=== PATIENT | female | born 1955 | race African-American/Black ===

== ENCOUNTER 2017-08-21 22:54 | Emergency (ER) | payer SELFPAY ==
[2017-08-21 22:59] VITALS: BP 119/80; PULSE 87; TEMP 97.7; BMI 25.1
--- NOTE | 2017-08-21 23:41 | PDOC ---
History of Present Illness - History of Present Illness Initial Comments: 08/22/17 00:00 Patient is a 62 F, who presents with b/l knee pain. Patient states that since yesterday she was unable to bend her right knee. She denies any history of trauma to knees. Patient denies any fever, chills nausea, vomiting, diarrhea, chest pain, shortness of breath, redness, or swelling Social Hx: Current every day smoker. 08/22/17 00:02 <Chelsea Rosales - Last Filed: 08/22/17 00:02> <Linda Santacruz - Last Filed: 08/22/17 00:20> - General Chief Complaint: Pain, Acute Stated Complaint: PAIN Time Seen by Provider: 08/21/17 23:19 Past History <Chelsea Rosales - Last Filed: 08/22/17 00:02> - Past Medical History COPD: No - Suicide/Smoking/Psychosocial Hx Smoking History: Current every day smoker Number of Cigarettes Smoked Daily: 4 Information on smoking cessation initiated: No 'Breaking Loose' booklet given: 10/16/15 Hx Alcohol Use: Yes (occasional) Drug/Substance Use Hx: No Substance Use Type: None <Linda Santacruz - Last Filed: 08/22/17 00:20> - Past Medical History Allergies/Adverse Reactions: Allergies Allergy/AdvReac Type Severity Reaction Status Date / Time No Known Allergies Allergy Verified 08/21/17 22:57 Home Medications: Ambulatory Orders Aspirin [ASA -] 81 mg PO DAILY 08/22/17 Review of Systems - Review of Systems Comments:: 08/22/17 00:02 CONSTITUTIONAL: Absent: fever, no chills, no fatigue EYES: Absent: visual changes ENT: Absent: ear pain, no sore throat CARDIOVASCULAR: Absent: chest pain, no palpitations RESPIRATORY: Absent: cough, no SOB GI: Absent: abdominal pain, no nausea, no vomiting, no constipation, no diarrhea GENITOURINARY: Absent: dysuria, no frequency, no hematuria MUSCULOSKELETAL: Present: b/l knee pain Absent: back pain SKIN: Absent: rash NEURO: Absent: headache 08/22/17 00:05 <Chelsea Rosales - Last Filed: 08/22/17 00:02> *Physical Exam - Vital Signs Last Vital Signs Temp Pulse Resp BP Pulse Ox 97.7 F 87 18 119/80 97 08/21/17 22:57 08/21/17 22:57 08/21/17 22:57 08/21/17 22:57 08/21/17 22:57 - Physical Exam Comments: 08/22/17 00:02 GENERAL: Well-appearing, well-nourished. No apparent distress. HEENT: Normocephalic, atraumatic. PERRL, EOM intact. CARDIOVASCULAR: Normal S1, S2. Regular rate and rhythm. PULMONARY: Clear to auscultation bilaterally. ABDOMEN: Soft, non-distended, non-tender. EXTREMITIES: Right knee - some tenderness, medial meniscus area, hard cyst-like structure ( 1cm) On the left knee - bony prominence at the upper fibula. No signs of cellulitis SKIN: Warm, dry. No rash NEUROLOGICAL: No focal neurological deficits. <Chelsea Rosales - Last Filed: 08/22/17 00:02> - Vital Signs Last Vital Signs Temp Pulse Resp BP Pulse Ox 97.7 F 87 18 119/80 97 08/21/17 22:57 08/21/17 22:57 08/21/17 22:57 08/21/17 22:57 08/21/17 22:57 <Linda Santacruz - Last Filed: 08/22/17 00:20> *DC/Admit/Observation/Transfer - Attestations Scribe Attestion: 08/22/17 00:04 Documentation prepared by Chelsea Rosales, acting as medical claims representative for Linda Santacruz MD. <Chelsea Rosales - Last Filed: 08/22/17 00:02> <Linda Santacruz - Last Filed: 08/22/17 00:20> Diagnosis at time of Disposition: Knee pain, bilateral Qualifiers: Chronicity: chronic Qualified Code(s): M25.561 - Pain in right knee; M25.562 - Pain in left knee; M25.562 - Pain in left knee; G89.29 - Other chronic pain; G89.29 - Other chronic pain DJD (degenerative joint disease) of knee Qualifiers: Osteoarthritis type: unspecified Laterality: bilateral Qualified Code(s): M17.0 - Bilateral primary osteoarthritis of knee - Discharge Dispostion Disposition: HOME Condition at time of disposition: Stable - Referrals Referrals: Barry Moscoso MD [Staff Physician] - - Patient Instructions Printed Discharge Instructions: DI for Knee Pain Additional Instructions: please followup with your orthopedist
== END 2017-08-22 00:38 | disposition home or self-care (01) ==
LOC: JER 22:54
DX: M17.11 Unilateral primary osteoarthritis, right knee (principal); M17.12 Unilateral primary osteoarthritis, left knee
CPT/HCPCS: 73562-TC-LT-FY; 73562-TC-RT-FY; 99281-25

== ENCOUNTER 2019-04-13 12:11 | Inpatient (IN) | payer SELFPAY ==
--- NOTE | 2019-04-13 12:37 | PDOC ---
History of Present Illness - General Chief Complaint: Pain, Acute Stated Complaint: ABD/PAIN Time Seen by Provider: 04/13/19 12:36 History Source: Patient Exam Limitations: No Limitations - History of Present Illness Initial Comments: 04/13/19 13:05 63y previously healthy F presenting w RUQ pain. Woke up yesterday morning with sudden onset constant severe RUQ pain, worse w eating. Did not take any pain meds. Denies alcohol, trauma, AB surgery. Denies fever, nausea/vomiting, chest pain/SOB, urinary/bowel mvmt changes. Past History - Past Medical History Allergies/Adverse Reactions: Allergies Allergy/AdvReac Type Severity Reaction Status Date / Time No Known Allergies Allergy Verified 04/13/19 12:24 Home Medications: Ambulatory Orders NK [No Known Home Medication] 04/13/19 COPD: No - Psycho Social/Smoking Cessation Hx Smoking History: Current every day smoker Number of Cigarettes Smoked Daily: 4 Information on smoking cessation initiated: Yes 'Breaking Loose' booklet given: 10/16/15 Hx Alcohol Use: Yes (occasional) Drug/Substance Use Hx: No Substance Use Type: None Review of Systems - Review of Systems Constitutional: No: Chills, Fever HEENTM: No: Eye Pain, Ear Discharge, Nose Pain, Throat Pain Respiratory: No: Cough, Shortness of Breath Cardiac (ROS): No: Chest Pain, Palpitations, Syncope ABD/GI: No: Abdominal Distended, Constipated, Diarrhea, Nausea, Vomiting : No: Burning, Dysuria, Discharge, Frequency Musculoskeletal: No: Back Pain, Joint Pain Integumentary: No: Bruising, Dryness, Erythema Neurological: No: Headache, Seizure, Tingling Psychiatric: No: Anxiety, Depression, Stressors Endocrine: No: Excessive Sweating, Flushing, Intolerance to Cold, Intolerance to Heat Hematologic/Lymphatic: No: Anemia, Blood Clots *Physical Exam - Vital Signs Last Vital Signs Temp Pulse Resp BP Pulse Ox 99.2 F 108 H 22 H 122/71 95 04/13/19 12:25 04/13/19 12:25 04/13/19 12:25 04/13/19 12:25 04/13/19 12:25 - Physical Exam General Appearance: Yes: Nourished, Appropriately Dressed, Mild Distress HEENT: positive: EOMI, ROBERT, Normal Voice, Hearing Grossly Normal. negative: Scleral Icterus (R), Scleral Icterus (L), Nasal Congestion Respiratory/Chest: positive: Lungs Clear, Normal Breath Sounds, Rapid RR. negative: Chest Tender, Respiratory Distress, Crackles, Rales, Rhonchi, Stridor , Wheezing Cardiovascular: positive: Regular Rhythm, S1, S2, Tachycardia. negative: Edema , Murmur Gastrointestinal/Abdominal: positive: Normal Bowel Sounds, Tender (moderate RUQ , + kramer), Flat, Soft. negative: Organomegaly, Distended, Guarding, Rebound Musculoskeletal: negative: CVA Tenderness (R), CVA Tenderness (L) Extremity: positive: Normal Capillary Refill Integumentary: positive: Normal Color Neurologic: positive: Fully Oriented, Alert, Normal Response, Responsive. negative: Numbness, Confused, Disoriented ED Treatment Course - LABORATORY CBC & Chemistry Diagram: 04/13/19 12:50 04/13/19 12:50 Medical Decision Making - Medical Decision Making 04/13/19 13:06 CXR shows clear lungs, atelectasis EKG shows NSR HR 90, QTc 452, no ST changes RUQ US showed hepatomegaly w mild fatty liver, normal gallbladder CT A/P shows small pocket of air in upper anterior pelvic wall entrapped bowel vs pneumoperitoneum, hepatic steatosis, 3cm L ovarian cyst WBC 10.9, normal CMP, trop/UA --- 63y previously healthy F presenting w 1d RUQ pain d/t unknown cause. Low concern for ACS (neg trop, NSR EKG) vs pancreatitis (normal lipase) vs UTI ( clean UA) vs cholecystitis (normal gallbladder/no stones/wall thickening/fluid on US, normal bili). CT A/P showed small pocket of air in upper anterior pelvic wall (posterior umbilicus/suprapubic region) that repeat CT in L lateral decubitus confirmed nondilated small bowel loop herniating into pelvic wall, no pnuemoperitoneum or SBO. Given 8 morphine, tylenol, 30mL/kg NS, pain still 11/18 Admitted m/s Dr Enrique for intractable RUQ pain Discharge - Discharge Information Problems reviewed: Yes Clinical Impression/Diagnosis: Intractable abdominal pain Condition: Stable - Follow up/Referral - Patient Discharge Instructions - Post Discharge Activity
[2019-04-13] MEDS ORDERED: morphine CARPU-JECT 4 MG/1 ML DISP.SYRIN IVPUSH ONE ×3 (12:46→18:51)
[2019-04-13] MEDS ORDERED: ACETAMINOPHEN 1000 MG/100 ML VIAL (NON FORMULARY) IVPB ONE (12:47)
[2019-04-13] MEDS ORDERED: SODIUM CHLORIDE 2,449 ML IV ONE (12:59)
[2019-04-13] MEDS ORDERED: ACETAMINOPHEN INJECTION 100 ML IVPB ONE (13:20)
[2019-04-13] MEDS ORDERED: MORPHINE SULFATE 2 MG/ML VIAL ONE ×2 (13:20→15:14)
[2019-04-13 13:29] LABS: BASO % 0.6 % (0-2.0); EOS % 0.2 % (0-4.5); HEMATOCRIT 43.7 % (32.4-45.2); HEMOGLOBIN 14.8 GM/dL (10.7-15.3); LYMPH % 34.1 % (8-40); MCH 30.4 pg (25.7-33.7); MCHC 33.9 g/dl (32.0-36.0); MEAN CELL VOLUME 89.7 fl (80-96); MEAN PLT VOLUME 7.9 fl (7.5-11.1); MONO % 13.9 % (3.8-10.2); NEUT % 51.2 % (42.8-82.8); PLATELET COUNT 207 K/MM3 (134-434); RBC 4.87 M/mm3 (3.60-5.2); RDW 13.4 % (11.6-15.6); WHITE BLOOD COUNT 10.9 K/mm3 (4.0-10.0)
[2019-04-13 13:37] LABS: VENOUS PC02 41.1 mmHg (38-52); VENOUS PH 7.41 (7.31-7.41)
[2019-04-13 13:39] LABS: VENOUS PO2 < 49 mmHg (28-48)
[2019-04-13 13:46] LABS: EPI CELLS 1.5 /HPF (0-5/HPF); HYALINE CASTS 4 /lpf (0-8); PH,URINE 5.5 (5.0-8.0); URINE APPEARANCE CLEAR; URINE BACTERIA 6.5 /hpf (NEGATIVE); URINE BILIRUBIN 1+ (NEGATIVE); URINE COLOR DK YELLOW; URINE GLUCOSE (UA) NEGATIVE (NEGATIVE); URINE KETONE NEGATIVE (NEGATIVE); URINE LEUK ESTERASE 2+ (NEGATIVE); URINE NITRITE NEGATIVE (NEGATIVE); URINE PROTEIN NEGATIVE (NEGATIVE); URINE RBC 3 /hpf (0-4); URINE UROBILINOGEN 4.0 E.U/dl mg/dL (0.2-1.0); URINE WBC 5 /hpf (0-5)
[2019-04-13 14:00] LABS: INR 1.16 (0.83-1.09); PROTHROMBIN TIME (PATIENT) 13.7 SEC (9.7-13.0)
[2019-04-13 14:06] LABS: ALBUMIN 3.7 g/dl (3.4-5.0); ALK PHOS 104 U/L (45-117); ANION GAP 6 MMOL/L (8-16); BILIRUBIN,TOTAL 0.8 mg/dL (0.2-1); BLOOD UREA NITROGEN 10.1 mg/dL (7-18); CHLORIDE 106 mmol/L (98-107); CO2 25 mmol/L (21-32); CREATININE 0.7 mg/dL (0.55-1.3); GLUCOSE,RANDOM 105 mg/dL (74-106); POTASSIUM 5.3 mmol/L (3.5-5.1); SGOT/AST 70 U/L (15-37); SGPT/ALT 70 U/L (13-61); SODIUM 137 mmol/L (136-145); TOT PROT 7.9 g/dl (6.4-8.2)
--- NOTE | 2019-04-13 14:06 | PDOC ---
Documentation entered by Zaki Sauer SCRIBE, acting as scribe for Barry Jacobson MD. Barry Jacobson MD: This documentation has been prepared by the Camacho santiago Daniel, SCRIBE, under my direction and personally reviewed by me in its entirety. I confirm that the documentation accurately reflects all work, treatment, procedures, and medical decision making performed by me. Attending Attestation - Resident Resident Name: Venu Moe - ED Attending Attestation I have performed the following: I have examined & evaluated the patient, The case was reviewed & discussed with the resident, I agree w/resident's findings & plan, Exceptions are as noted - HPI HPI: 04/13/19 14:06 63 F with no PMH presents to ED with R sided abdominal pain. Pt reports sudden onset pain yesterday that is non-radiating. Denies F/C. Denies N/V. Denies diarrhea/constipation. Has never had pain like this before. Pain is worse with lying down. Denies CP/SOB. No prior surgeries. - Physicial Exam PE: 04/13/19 14:07 "GENERAL: Awake, alert, and fully oriented, in no acute distress. HEAD: No signs of trauma EYES: PERRLA, EOMI, sclera anicteric, conjunctiva clear ENT: Auricles normal inspection, hearing grossly normal, nares patent, oropharynx clear without exudates. Moist mucosa NECK: Nontender, no stepoffs, Normal ROM, supple, no lymphadenopathy, JVD, or masses LUNGS: Breath sounds equal, clear to auscultation bilaterally. No wheezes, and no crackles HEART: Regular rate and rhythm, normal S1 and S2, no murmurs, rubs or gallops ABDOMEN: + RUQ TTP, normoactive bowel sounds. No guarding, no rebound. No masses EXTREMITIES: Normal range of motion, no edema. No clubbing or cyanosis. No cords, erythema, or tenderness NEUROLOGICAL: Cranial nerves II through XII intact. 5/5 strength and sensation in all extremities, Normal speech, normal gait, normal cerebellar function SKIN: Warm, Dry, normal turgor, no rashes or lesions noted. - Medical Decision Making 04/13/19 14:08 63 F with RUQ pain. Suspect biliary colic. - Labs - RUQ sono - Pain control US negative CT obtained showing RLL PNA and hernia containing loop of bowel. Pt without obstructive symptoms. Pt admitted to hospitalist
[2019-04-13] MEDS ORDERED: morphine SULFATE 4 MG/ML VIAL ONE (19:13)
--- NOTE | 2019-04-13 22:31 | PN ---
Teaching Attending Note Name of Resident: Lencho Ward ATTENDING PHYSICIAN STATEMENT I saw and evaluated the patient. I reviewed the resident's note and discussed the case with the resident. I agree with the resident's findings and plan as documented. SUBJECTIVE: Patient is a 63 year old woman with a PMH of Tobacco use who presents to ER with right sided abdominal pain. Patient reports sudden onset pain yesterday that is non-radiating. Denies fever, chills, chest pain, SOB, nausea, vomiting, diarrhea, dysuria, frequency, hematuria, headache or constipation. Has never had pain like this before. Pain is worse with lying down. No prior abdominal surgeries. No recent travel or sick contacts. Denies alcohol or illicit drug use. OBJECTIVE: Alert Vital Signs Period Temp Pulse Resp BP Sys/Bustillos Pulse Ox Last 24 Hr 99.2 F 84-108 16-22 117-123/71-78 95-98 HEENT: No Jaundice, eye redness or discharge, PERRLA, EOMI. Normocephalic, atraumatic. External ears are normal and hearing is grossly intact. No nasal discharge. Neck: Supple, nontender. No palpable adenopathy or thyromegaly. No JVD Chest: Good effort. Diminished breath sounds and dullness in both lung bases. Heart: Regular. No S3, rub or murmur Abdomen: Not distended, soft, nontender and no HSM. No rebound or guarding. Normal bowel sounds. Ext: Peripheral pulses intact. No leg edema. Skin: Warm and dry. No petechiae, rash or ecchymosis. Neuro: Alert. Oriented x3. CN 2-12 grossly intact. Sensation grossly intact in all four extremities and DTR are symmetric. Psych: Appropriate mood and affect. Good insight. Home Medications Medication Instructions Recorded NK [No Known Home Medication] 04/13/19 Abnormal Lab Results 04/13/19 04/13/19 04/13/19 12:50 12:50 12:50 WBC 10.9 H Monocytes % 13.9 H PT with INR 13.70 H INR 1.16 H POC VBG pO2 Potassium 5.3 H Anion Gap 6 L AST 70 H ALT 70 H Urine Bilirubin Urine Urobilinogen Ur Leukocyte Esterase 04/13/19 04/13/19 13:10 13:20 WBC Monocytes % PT with INR INR POC VBG pO2 < 49 H Potassium Anion Gap AST ALT Urine Bilirubin 1+ H Urine Urobilinogen 4.0 e.u/dl H Ur Leukocyte Esterase 2+ H ASSESSMENT AND PLAN: 1. Intractable flank pain - Likely due to pneumonia. CXR shows RLL fluffy infiltrate. Ultrasound shows hepatomegaly with mild fatty infiltration. CT of abdomen/pelvis shows RLL infiltrate, nondilated small bowel loop herniating into the pelvic wall with no small bowel obstruction. Will consult surgery. Treat with IV Rocephin, Azithromycin and Solumedrol. Mild hyperkalemia is unexplained - will hydrate and repeat BMP. EKG is pending. Trend LFTs. Will continue comprehensive care for all of patients comorbid conditions. 2. Tobacco Use Counseled on risks associated with tobacco use. We will provide patient all the necessary assistance to facilitate smoking cessation and prescribe Nicotine patch. 3. DVT prophylaxis - Lovenox 40 mg SQ q 24 hours. 4. Advance directives - Full code
[2019-04-14] MEDS ORDERED: MORPHINE SULFATE 2 MG/ML VIAL IVPUSH PRN (01:32)
[2019-04-14] MEDS ORDERED: IBUPROFEN 600 MG TABLET (FP) PO PRN (01:32)
--- NOTE | 2019-04-14 01:41 | HP ---
CHIEF COMPLAINT: RUQ pain PCP: HISTORY OF PRESENT ILLNESS: The patient is a 63-year-old female with no past medical history who comes in complaining of a one-day history of right upper quadrant pain. The patient describes a sharp, constant, 7/10 pain in the right upper quadrant of her abdomen extending into her right flank. The patient denies any exacerbating or alleviating factors and states that she has never had a pain like this before in her life. In emergency Department, a right upper quadrant ultrasound showed no evidence of cholecystitis or cholelithiasis with a normal appearing gallbladder. An initial CT of the abdomen and pelvis showed a 3 cm left ovarian cyst as well as possible air in the anterior abdominal wall. A repeat CT of the abdomen and pelvis showed that this air in the abdominal wall was, in fact, a small abdominal hernia which was not incarcerated. The chest x-ray showed a prominent mediastinum with possible atelectasis at the left base. Recent Travel: none PAST MEDICAL HISTORY: see HPI PAST SURGICAL HISTORY: Left ankle surgery Social History: Smoking: currently smokes 3-4 cigarettes per day Alcohol: drinks 2-3 beers every other week Drugs: denies Allergies No Known Allergies Allergy (Verified 04/13/19 12:24) HOME MEDICATIONS: Home Medications Medication Instructions Recorded NK [No Known Home Medication] 04/13/19 REVIEW OF SYSTEMS CONSTITUTIONAL: Absent: fever, chills, diaphoresis, generalized weakness, malaise, loss of appetite, weight change HEENT: Absent: rhinorrhea, nasal congestion, throat pain, throat swelling, difficulty swallowing, mouth swelling, ear pain, eye pain, visual changes CARDIOVASCULAR: Absent: chest pain, syncope, palpitations, irregular heart rate, lightheadedness , peripheral edema RESPIRATORY: Absent: cough, shortness of breath, dyspnea with exertion, orthopnea, wheezing, stridor, hemoptysis GASTROINTESTINAL: Absent: abdominal distension, nausea, vomiting, diarrhea, constipation, melena, hematochezia GENITOURINARY: Absent: dysuria, frequency, urgency, hesitancy, hematuria, flank pain, genital pain MUSCULOSKELETAL: Absent: myalgia, arthralgia, joint swelling, back pain, neck pain SKIN: Absent: rash, itching, pallor HEMATOLOGIC/IMMUNOLOGIC: Absent: easy bleeding, easy bruising, lymphadenopathy, frequent infections ENDOCRINE: Absent: unexplained weight gain, unexplained weight loss, heat intolerance, cold intolerance NEUROLOGIC: Absent: headache, focal weakness or paresthesias, dizziness, unsteady gait, seizure, mental status changes, bladder or bowel incontinence PSYCHIATRIC: Absent: anxiety, depression, suicidal or homicidal ideation, hallucinations. PHYSICAL EXAMINATION Vital Signs - 24 hr 04/13/19 04/13/19 04/13/19 12:25 13:40 19:27 Temperature 99.2 F Pulse Rate 108 H Pulse Rate [ 98 H 84 Apical] Respiratory 22 H 16 20 Rate Blood Pressure 122/71 Blood Pressure 123/78 117/72 [Left Arm] O2 Sat by Pulse 95 98 95 Oximetry (%) GENERAL: Awake, alert, and fully oriented, in no acute distress. HEAD: Normal with no signs of trauma. EYES: Pupils equal, round and reactive to light, extraocular movements intact, sclera anicteric, conjunctiva clear. No lid lag. LUNGS: Breath sounds equal, clear to auscultation bilaterally. No wheezes, and no crackles. No accessory muscle use. HEART: Regular rate and rhythm, normal S1 and S2 without murmur, rub or gallop. ABDOMEN: Soft, not distended, normoactive bowel sounds. There is moderate tenderness to palpation in the RUQ and the right side at the costal margin. The pain is worst at the right costal margin. LOWER EXTREMITIES: 2+ pulses, warm, well-perfused. No calf tenderness. No peripheral edema. NEUROLOGICAL: Cranial nerves II-X intact. Normal speech. SKIN: Warm, dry, normal turgor, no rashes or lesions noted, normal capillary refill. Laboratory Results - last 24 hr 04/13/19 04/13/19 04/13/19 12:50 12:50 12:50 WBC 10.9 H RBC 4.87 Hgb 14.8 Hct 43.7 MCV 89.7 MCH 30.4 MCHC 33.9 RDW 13.4 Plt Count 207 MPV 7.9 Absolute Neuts (auto) 5.6 Neutrophils % 51.2 Lymphocytes % 34.1 Monocytes % 13.9 H Eosinophils % 0.2 Basophils % 0.6 Nucleated RBC % 0 PT with INR INR VBG pH POC VBG pCO2 POC VBG pO2 VBG HCO3 VBG O2 Sat (Reza) VBG Base Excess Sodium 137 Potassium 5.3 H Chloride 106 Carbon Dioxide 25 Anion Gap 6 L BUN 10.1 Creatinine 0.7 Est GFR (CKD-EPI)AfAm 108.38 Est GFR (CKD-EPI)NonAf 93.51 Random Glucose 105 Lactic Acid Calcium 9.0 Total Bilirubin 0.8 AST 70 H ALT 70 H Alkaline Phosphatase 104 Troponin I < 0.02 Total Protein 7.9 Albumin 3.7 Lipase 203 Urine Color Urine Appearance Urine pH Ur Specific [place] Urine Protein Urine Glucose (UA) Urine Ketones Urine Blood Urine Nitrite Urine Bilirubin Urine Urobilinogen Ur Leukocyte Esterase Urine WBC (Auto) Urine RBC (Auto) Urine Casts (Auto) U Epithel Cells (Auto) Urine Bacteria (Auto) Blood Type Antibody Screen 04/13/19 04/13/19 04/13/19 12:50 12:50 13:10 WBC RBC Hgb Hct MCV MCH MCHC RDW Plt Count MPV Absolute Neuts (auto) Neutrophils % Lymphocytes % Monocytes % Eosinophils % Basophils % Nucleated RBC % PT with INR 13.70 H INR 1.16 H VBG pH POC VBG pCO2 POC VBG pO2 VBG HCO3 VBG O2 Sat (Reza) VBG Base Excess Sodium Potassium Chloride Carbon Dioxide Anion Gap BUN Creatinine Est GFR (CKD-EPI)AfAm Est GFR (CKD-EPI)NonAf Random Glucose Lactic Acid Calcium Total Bilirubin AST ALT Alkaline Phosphatase Troponin I Total Protein Albumin Lipase Urine Color Dk yellow Urine Appearance Clear Urine pH 5.5 Ur Specific [place] 1.028 Urine Protein Negative Urine Glucose (UA) Negative Urine Ketones Negative Urine Blood Negative Urine Nitrite Negative Urine Bilirubin 1+ H Urine Urobilinogen 4.0 e.u/dl H Ur Leukocyte Esterase 2+ H Urine WBC (Auto) 5 Urine RBC (Auto) 3 Urine Casts (Auto) 4 U Epithel Cells (Auto) 1.5 Urine Bacteria (Auto) 6.5 Blood Type Cancelled Antibody Screen Cancelled 04/13/19 04/13/19 13:20 13:20 WBC RBC Hgb Hct MCV MCH MCHC RDW Plt Count MPV Absolute Neuts (auto) Neutrophils % Lymphocytes % Monocytes % Eosinophils % Basophils % Nucleated RBC % PT with INR INR VBG pH 7.41 POC VBG pCO2 41.1 POC VBG pO2 < 49 H VBG HCO3 25.3 VBG O2 Sat (Reza) 74.9 VBG Base Excess 1.0 Sodium Potassium Chloride Carbon Dioxide Anion Gap BUN Creatinine Est GFR (CKD-EPI)AfAm Est GFR (CKD-EPI)NonAf Random Glucose Lactic Acid 0.8 Calcium Total Bilirubin AST ALT Alkaline Phosphatase Troponin I Total Protein Albumin Lipase Urine Color Urine Appearance Urine pH Ur Specific [place] Urine Protein Urine Glucose (UA) Urine Ketones Urine Blood Urine Nitrite Urine Bilirubin Urine Urobilinogen Ur Leukocyte Esterase Urine WBC (Auto) Urine RBC (Auto) Urine Casts (Auto) U Epithel Cells (Auto) Urine Bacteria (Auto) Blood Type Antibody Screen ASSESSMENT/PLAN: The patient is a 63-year-old female with no past medical history who comes in complaining of a one-day history of right upper quadrant pain. #RUQ pain possibly 2/2 PNA -CXR with questionable infiltrate on right -RUQ US negative for acute kelley -CTAP reveals only Lt ovarian cyst and abdominal wall hernia) -will treat empirically with rocephin and azithromycin -solu-medrol 40 daily -IV hydration #transaminitis of unknown significance -will trend in AM #FEN -NS -K high. will rpt in am and treat accordingly -regular diet #Prophy -Lovenox 40mg SQ daily #Dispo -admit med surg Visit type - Emergency Visit Emergency Visit: Yes ED Registration Date: 04/13/19 Care time: The patient presented to the Emergency Department on the above date and was hospitalized for further evaluation of their emergent condition. - New Patient This patient is new to me today: Yes Date on this admission: 04/14/19 - Critical Care Critical Care patient: No ATTENDING PHYSICIAN STATEMENT I saw and evaluated the patient. I reviewed the resident's note and discussed the case with the resident. I agree with the resident's findings and plan as documented. SUBJECTIVE: OBJECTIVE: ASSESSMENT AND PLAN:
[2019-04-14] MEDS ORDERED: SODIUM CHLORIDE 1,000 ML IV SCH (01:45)
[2019-04-14] MEDS ORDERED: MORPHINE SULFATE 2 MG/ML VIAL ONE (02:54)
[2019-04-14 04:40] VITALS: BMI 28.5
[2019-04-14 08:18] LABS: BASO % 0.2 % (0-2.0); EOS % 0.7 % (0-4.5); HEMATOCRIT 39.2 % (32.4-45.2); HEMOGLOBIN 13.3 GM/dL (10.7-15.3); LYMPH % 26.7 % (8-40); MCH 30.7 pg (25.7-33.7); MCHC 33.9 g/dl (32.0-36.0); MEAN CELL VOLUME 90.5 fl (80-96); MEAN PLT VOLUME 7.6 fl (7.5-11.1); MONO % 13.8 % (3.8-10.2); NEUT % 58.6 % (42.8-82.8); PLATELET COUNT 167 K/MM3 (134-434); RBC 4.34 M/mm3 (3.60-5.2); RDW 13.3 % (11.6-15.6); WHITE BLOOD COUNT 8.1 K/mm3 (4.0-10.0)
[2019-04-14 08:29] LABS: ALBUMIN 3.1 g/dl (3.4-5.0); BILIRUBIN,TOTAL 0.8 mg/dL (0.2-1); BLOOD UREA NITROGEN 7.6 mg/dL (7-18); CALCIUM 8.2 mg/dL (8.5-10.1); CREATININE 0.5 mg/dL (0.55-1.3); MAGNESIUM 2.1 mg/dL (1.8-2.4); POTASSIUM 3.7 mmol/L (3.5-5.1); TOT PROT 6.5 g/dl (6.4-8.2)
--- NOTE | 2019-04-14 09:18 | PN ---
Progress Note (short form) - Note Progress Note: patient is s/o having right flank pain. Vital Signs Temperature 98.8 F 04/14/19 08:11 Pulse Rate 98 H 04/14/19 08:11 Respiratory Rate 18 04/14/19 08:11 Blood Pressure 119/71 04/14/19 08:11 O2 Sat by Pulse Oximetry (%) 97 04/14/19 04:30 GENERAL: The patient is awake, alert, and fully oriented, in no acute distress. HEAD: Normal with no signs of trauma. EYES: PERRL, extraocular movements intact, sclera anicteric, conjunctiva clear. ENT: Ears normal, oropharynx clear without exudates, moist mucous membranes. NECK: Trachea midline, full range of motion, supple. LUNGS: Breath sounds equal, clear to auscultation bilaterally, no wheezes, no crackles, no accessory muscle use. HEART: Regular rate and rhythm, S1, S2 without murmur, rub or gallop. ABDOMEN: Soft, mild RUQ tenderness, ND, normoactive bowel sounds, no guarding, no rebound, no hepatosplenomegaly, no masses. EXTREMITIES: 2+ pulses, warm, well-perfused, no edema. NEUROLOGICAL: Cranial nerves II through XII grossly intact. Normal speech, gait is stable . PSYCH: Normal mood, normal affect. SKIN: Warm, dry, normal turgor, no rashes or lesions noted CBCD WBC 8.1 K/mm3 (4.0-10.0) 04/14/19 07:10 RBC 4.34 M/mm3 (3.60-5.2) 04/14/19 07:10 Hgb 13.3 GM/dL (10.7-15.3) 04/14/19 07:10 Hct 39.2 % (32.4-45.2) 04/14/19 07:10 MCV 90.5 fl (80-96) 04/14/19 07:10 MCHC 33.9 g/dl (32.0-36.0) 04/14/19 07:10 RDW 13.3 % (11.6-15.6) 04/14/19 07:10 Plt Count 167 K/MM3 (134-434) 04/14/19 07:10 MPV 7.6 fl (7.5-11.1) 04/14/19 07:10 CMP Sodium 139 mmol/L (136-145) 04/14/19 07:10 Potassium 3.7 mmol/L (3.5-5.1) 04/14/19 07:10 Chloride 107 mmol/L (98-107) 04/14/19 07:10 Carbon Dioxide 25 mmol/L (21-32) 04/14/19 07:10 Anion Gap 7 MMOL/L (8-16) L 04/14/19 07:10 BUN 7.6 mg/dL (7-18) 04/14/19 07:10 Creatinine 0.5 mg/dL (0.55-1.3) L 04/14/19 07:10 Random Glucose 115 mg/dL (74-106) H 04/14/19 07:10 Calcium 8.2 mg/dL (8.5-10.1) L 04/14/19 07:10 Total Bilirubin 0.8 mg/dL (0.2-1) 04/14/19 07:10 AST 29 U/L (15-37) 04/14/19 07:10 ALT 52 U/L (13-61) 04/14/19 07:10 Alkaline Phosphatase 81 U/L (45-117) 04/14/19 07:10 Total Protein 6.5 g/dl (6.4-8.2) 04/14/19 07:10 Albumin 3.1 g/dl (3.4-5.0) L 04/14/19 07:10 CARDIAC ENZYMES Troponin I < 0.02 ng/ml (0.00-0.05) 04/13/19 12:50 Current Medications Generic Name Dose Route Start Last Admin Trade Name Freq PRN Reason Stop Dose Admin Enoxaparin Sodium 40 mg 04/14/19 10:00 Lovenox - SQ DAILY [facility] Azithromycin 500 mg in 250 mls @ 250 mls/hr 04/14/19 10:00 Zithromax 500mg Ivpb (Pre-Docked) IVPB DAILY [facility] Ceftriaxone Sodium 1 gm/ 50 mls @ 100 mls/hr 04/14/19 10:00 Dextrose IVPB DAILY [facility] Protocol Sodium Chloride 1,000 mls @ 50 mls/hr 04/14/19 01:45 04/14/19 02:39 Normal Saline - IV 50 mls/hr ASDIR NICOLE Administration Ibuprofen 600 mg 04/14/19 01:32 Motrin - PO Q8H PRN PAIN LEVEL 1-5 Methylprednisolone Sodium Succinate 40 mg 04/14/19 10:00 Solu-Medrol - IVPUSH DAILY [facility] Morphine Sulfate 2 mg 04/14/19 01:32 04/14/19 03:01 Morphine Sulfate IVPUSH 2 mg Q4H PRN Administration PAIN LEVEL 6-10 Home Medications Medication Instructions Recorded NK [No Known Home Medication] 04/13/19 CXR with questionable infiltrate on right RUQ US negative for acute kelley CTAP reveals only Lt ovarian cyst and abdominal wall hernia) Assessment and Plan: Patient is a 63yof with no past medical history who comes in complaining of a one-day history of right upper quadrant pain. And was found to have Pneumonia. # Right Pulmonary Infiltrate: on iv abx rocphin/zithromax /medrol IV continue #Small pocket of air within the upper anterior pelvic wall: surgical consult , cannot r/o small pneumoperitoneum. #Left ovarian cyst 3cm without nodularity or thickened internal septation. #transaminitis of unknown significance: will trend in AM DVT Px: Lovenox possible dc in am Visit type - Emergency Visit Emergency Visit: Yes ED Registration Date: 04/13/19 Care time: The patient presented to the Emergency Department on the above date and was hospitalized for further evaluation of their emergent condition. - New Patient This patient is new to me today: Yes Date on this admission: 04/14/19 - Critical Care Critical Care patient: No - Discharge Referral Referred to [facility] Med P.C.: No
[2019-04-14] MEDS ORDERED: DEXTROSE 5%-WATER - 50 ML IVPB ONE (09:40)
[2019-04-14] MEDS ORDERED: cefTRIAXone SODIUM 1 GM VIAL ONE (09:40)
[2019-04-14] MEDS: ENOXAPARIN NA (PORCINE) 40 MG/0.4 ML DISP.SYRIN SQ SCH (09:49)
[2019-04-14] MEDS: CEFTRIAXONE 1 GM in DEXTROSE 5%-WATER - 50 ML IVPB SCH (09:49)
[2019-04-14] MEDS: methylPREDNISolone NA SUCC 40 MG/1 ML VIAL IVPUSH SCH (09:51)
[2019-04-14] MEDS: AZITHROMYCIN IVPB 500 MG/250 ML BAG IVPB SCH (09:52)
--- NOTE | 2019-04-14 12:42 | PN ---
Progress Note (short form) - Note Progress Note: surgery pt seen and examined. full consult dictated. 63f admitted for pna. on steroids. has right lower chest pain. had ct abd showing possible pneumoperitoneum in lower anterior mid pelvis. repeat ct ruled that out and showed it was a loop of bowel possible hernia. exam was delayed as patient was having her hair braided. on standing and supine exam no hernia. suspect previous hysterectomy resulted in a flap that a loop of bowel is in. pt has no symptoms. no clinical hernia. will start regular diet. no surgical intervention
--- NOTE | 2019-04-14 13:28 | CONS ---
DATE OF CONSULTATION: 04/14/2019 This a routine consultation for Dr. Noguera. BRIEF HISTORY: A 63-year-old female who was admitted to [facility] for pneumonia. She had right-sided chest pain and upper abdominal pain. This presumably led to a CAT scan of her abdomen and pelvis, which showed a possible focus of air in the midline pelvis where she had a previous hysterectomy. The digital developer opined that this was unlikely pneumoperitoneum, but he could not rule out other possibilities versus a loop small bowel. A 2nd CAT scan was done in the decubitus position, which confirmed that this was not pneumoperitoneum, that this was a loop of bowel, possibly within the abdominal wall, possibly a hernia. This generated a surgical consultation. The patient denies lower abdominal pain. She denies problems with eating. She denies problems with bowel movements. PAST MEDICAL HISTORY: Her past medical history is negative. PAST SURGICAL HISTORY: Includes hysterectomy. SOCIAL HISTORY: Positive for tobacco. Positive for alcohol. She has been encouraged to quit. ALLERGIES: She has no known drug allergies. MEDICATIONS: She takes no medications. REVIEW OF SYSTEMS: General: She denies fever, malaise. Cardiac: She denied chest pain, palpitations. Respiratory: She denied shortness of breath or wheeze. Gastrointestinal: Admits to right upper quadrant abdominal pain. Genitourinary: She denies dysuria. Musculoskeletal: Denies joint pain, admits to pain on her right rib. Psychiatric: Denies anxiety, depression or hearing voices. PHYSICAL EXAMINATION: General: This is a well-developed, well-nourished 63-year-old female. Her physical exam was initially delayed as she declined exam because a friend or family member was braiding her hair and she did not wish to interrupt the braiding process. Eventually I was able to evaluate her. HEENT: Her head is normocephalic. Her sclera are anicteric. Neck: Her neck is supple. Chest: Her chest is clear. She has tenderness along the right rib cage on the lower portion of her chest. Abdomen: Her abdomen is soft, nontender. There is a well-healed Pfannenstiel incision in the supine and standing position. I am unable to appreciate a hernia. Extremities: Her extremities have trace edema, as well as tattoos. LABORATORY DATA: Her white blood cell count is normal at 8.1. Her chemistries are unremarkable. REVIEW OF HER IMAGING: She was initially worked up for gallbladder disease. Her ultrasound shows hepatomegaly, no gallstones and her CAT scan was listed in HPI. ASSESSMENT: This is a 63-year-old female called to evaluate for pneumoperitoneum. She has already had a 2nd CAT scan that has ruled out pneumoperitoneum. I suspect that during her hysterectomy that a flap was created in the abdominal wall and perhaps a loop of bowel has slid into that flap. There is no obvious hernia on exam. She clinically had no obstructive symptoms and do not feel that this needs any surgical intervention. If she develops symptoms from this loop of bowel, she can perhaps be electively explored and if there is a hernia this can be repaired. Currently there is no pneumoperitoneum. I will start the patient on a regular diet and she can follow with me on an as needed basis. DO ARMIN HOLCOMB/[id number]
--- NOTE | 2019-04-14 23:21 | EKG ---
Test Reason : Blood Pressure : / mmHG Vent. Rate : 090 BPM Atrial Rate : 090 BPM P-R Int : 148 ms QRS Dur : 070 ms QT Int : 370 ms P-R-T Axes : 056 015 036 degrees QTc Int : 452 ms NORMAL SINUS RHYTHM NO PREVIOUS ECGS AVAILABLE Confirmed by MATT FALCON MD ([id number]) on 04/14/2019 11:20:32 PM Referred By: Confirmed By:MATT FALCON MD
[2019-04-15] MEDS ORDERED: DEXTROSE 5%-WATER - 50 ML IVPB ONE (09:24)
[2019-04-15] MEDS ORDERED: cefTRIAXone SODIUM 1 GM VIAL ONE (09:24)
[2019-04-15 09:27] LABS: BASO % 0.3 % (0-2.0); EOS % 0.3 % (0-4.5); HEMATOCRIT 41.7 % (32.4-45.2); LYMPH % 22.6 % (8-40); MCH 30.1 pg (25.7-33.7); MCHC 33.6 g/dl (32.0-36.0); MEAN CELL VOLUME 89.5 fl (80-96); MEAN PLT VOLUME 7.9 fl (7.5-11.1); MONO % 9.9 % (3.8-10.2); NEUT % 66.9 % (42.8-82.8); PLATELET COUNT 198 K/MM3 (134-434); RBC 4.66 M/mm3 (3.60-5.2); RDW 13.3 % (11.6-15.6); WHITE BLOOD COUNT 11.1 K/mm3 (4.0-10.0)
[2019-04-15] MEDS ORDERED: PT OWN MED DRAWER 7, Y5N ONE (09:27)
[2019-04-15] MEDS: AZITHROMYCIN IVPB 500 MG/250 ML BAG IVPB SCH (09:41)
[2019-04-15] MEDS: methylPREDNISolone NA SUCC 40 MG/1 ML VIAL IVPUSH SCH (09:42)
[2019-04-15] MEDS: ENOXAPARIN NA (PORCINE) 40 MG/0.4 ML DISP.SYRIN SQ SCH (09:42)
[2019-04-15] MEDS: CEFTRIAXONE 1 GM in DEXTROSE 5%-WATER - 50 ML IVPB SCH (11:34)
--- NOTE | 2019-04-15 12:23 | DS ---
Physical Exam: SUBJECTIVE: Patient seen and examined OBJECTIVE: Vital Signs Period Temp Pulse Resp BP Sys/Bustillos Pulse Ox Last 24 Hr 97.6 F-98.1 F 78-94 20-20 136-139/58-84 93-96 PHYSICAL EXAM GENERAL: The patient is awake, alert, and fully oriented, in no acute distress. HEAD: Normal with no signs of trauma. EYES: PERRL, extraocular movements intact, sclera anicteric and w/o pallor, conjunctiva clear. ENT: Ears normal, nares patent, oropharynx clear without exudates, moist mucous membranes. NECK: Trachea midline, full range of motion, supple. LUNGS: Breath sounds equal, clear to auscultation bilaterally, no wheezes, no crackles, no accessory muscle use. HEART: Regular rate and rhythm, S1, S2 without murmur, rub or gallop. ABDOMEN: Soft, nontender, nondistended, normoactive bowel sounds, no guarding, no rebound. EXTREMITIES: 2+ pulses, warm, well-perfused, no edema. NEUROLOGICAL: Normal speech, gait not observed. PSYCH: Normal mood, normal affect. SKIN: Warm, dry, normal turgor, no rashes or lesions noted. LABS Laboratory Results - last 24 hr 04/15/19 08:05 WBC 11.1 H RBC 4.66 Hgb 14.0 Hct 41.7 MCV 89.5 MCH 30.1 MCHC 33.6 RDW 13.3 Plt Count 198 MPV 7.9 Absolute Neuts (auto) 7.5 Neutrophils % 66.9 Lymphocytes % 22.6 Monocytes % 9.9 Eosinophils % 0.3 Basophils % 0.3 Nucleated RBC % 0 HOSPITAL COURSE: Date of Admission:04/13/19 Date of Discharge: 04/15/19 63F w/ no significant PMH presenting with complaint of severe RUQ pain x1 day. RUQ-US negative for GB pathology. CT A/P showing possible air pocket in pelvic wall, Right basilar infiltrate, 3cm Left ovarian cyst. CT A/P repeated, on lateral decubitus, showing nondilated small bowel hernia into pelvic wall. Surgery(Evelyn), consult thought imaging likely d/t hysterectomy. Given IV abx for R-lung PNA. Stable for dc home w/ PO abx for PNA. Minutes to complete discharge: 20 Discharge Summary Problems reviewed: Yes Reason For Visit: INTRACTABLE ABD PAIN Current Active Problems Intractable abdominal pain (Acute) Condition: Stable - Instructions Diet, Activity, Other Instructions: You were evaluated in the hospital for right-sided abdominal pain. Imaging did not suggest any gallbladder stones or infection. A surgeon evaluated you due to the position of the bowel loop in the pelvis. It was determined that this finding was likely due to your history of a hysterectomy. You were treated with intravenous antibiotics for a pneumonia found on imaging. Your symptoms improved and you were deemed stable for discharge home. MEDICATIONS: - NEW Medications: --Cefuroxime[CEFTIN] 500mg, twice daily --Azithromycin[ZITHROMAX] 250mg, once daily Please see the physicians below within 1-2 weeks for follow-up: - Primary Care Physician: to discuss your recent abdominal pain, labwork, referral for your Left-sided ovarian cyst -Please follow up with your Obstetric and excellence specialist within 2 week period for further work up. Please seek immediate medical evaluation if you experience: - worsening, severe abdominal pain - severe nausea, vomiting with inability to tolerate a regular meal - fever, chills, Referrals: [facility] [Provider Group] - 1 Week (Please call to make appointment with dr ahuja. ) Benito Salomon MD [Staff Physician] - 1 Week Disposition: HOME - Home Medications Comprehensive Discharge Medication List: Ambulatory Orders Azithromycin [Zithromax] 250 mg PO DAILY #3 vial 04/15/19 Cefuroxime Axetil [Ceftin -] 500 mg PO Q12H #20 tablet 04/15/19 This patient is new to me today: Yes Date on this admission: 04/15/19 Emergency Visit: No Critical Care patient: No - Discharge Referral Referred to [facility] No ATTENDING PHYSICIAN STATEMENT I saw and evaluated the patient. I reviewed the resident's note and discussed the case with the resident. I agree with the resident's findings and plan as documented. SUBJECTIVE: OBJECTIVE: ASSESSMENT AND PLAN:
[2019-04-15 15:37] VITALS: BP 128/74; PULSE 86; TEMP 98.5
--- NOTE | 2019-04-15 16:31 | PN ---
Teaching Attending Note Name of Resident: Austyn Terry ATTENDING PHYSICIAN STATEMENT I saw and evaluated the patient. I reviewed the resident's note and discussed the case with the resident. I agree with the resident's findings and plan as documented. SUBJECTIVE: Patient is comfortable with no acute distress, feels better, c/o skight right flank pain but improved as per patient. Vital Signs Temperature 98.5 F 04/15/19 15:19 Pulse Rate 86 04/15/19 15:19 Respiratory Rate 20 04/15/19 15:19 Blood Pressure 128/74 04/15/19 15:19 O2 Sat by Pulse Oximetry (%) 93 L 04/15/19 09:00 GENERAL: The patient is awake, alert, and fully oriented, in no acute distress. HEAD: Normal with no signs of trauma. EYES: PERRL, EOMI, sclera anicteric, conjunctiva clear. ENT: Ears normal, oropharynx clear without exudates, moist mucous membranes. NECK: Trachea midline, full range of motion, supple. LUNGS: Breath sounds equal, clear to auscultation bilaterally, no wheezes, no crackles, no accessory muscle use. HEART: Regular rate and rhythm, S1, S2 without murmur, rub or gallop. ABDOMEN: Soft, NT, ND, normoactive bowel sounds, no guarding, no rebound, no hepatosplenomegaly, no masses. EXTREMITIES: 2+ pulses, warm, well-perfused, no edema. NEUROLOGICAL: Cranial nerves II through XII grossly intact. Normal speech, gait is stable . PSYCH: Normal mood, normal affect. SKIN: Warm, dry, normal turgor, no rashes or lesions noted CBCD WBC 8.1 K/mm3 (4.0-10.0) 04/14/19 07:10 RBC 4.34 M/mm3 (3.60-5.2) 04/14/19 07:10 Hgb 13.3 GM/dL (10.7-15.3) 04/14/19 07:10 Hct 39.2 % (32.4-45.2) 04/14/19 07:10 MCV 90.5 fl (80-96) 04/14/19 07:10 MCHC 33.9 g/dl (32.0-36.0) 04/14/19 07:10 RDW 13.3 % (11.6-15.6) 04/14/19 07:10 Plt Count 167 K/MM3 (134-434) 04/14/19 07:10 MPV 7.6 fl (7.5-11.1) 04/14/19 07:10 CMP Sodium 139 mmol/L (136-145) 04/14/19 07:10 Potassium 3.7 mmol/L (3.5-5.1) 04/14/19 07:10 Chloride 107 mmol/L (98-107) 04/14/19 07:10 Carbon Dioxide 25 mmol/L (21-32) 04/14/19 07:10 Anion Gap 7 MMOL/L (8-16) L 04/14/19 07:10 BUN 7.6 mg/dL (7-18) 04/14/19 07:10 Creatinine 0.5 mg/dL (0.55-1.3) L 04/14/19 07:10 Random Glucose 115 mg/dL (74-106) H 04/14/19 07:10 Calcium 8.2 mg/dL (8.5-10.1) L 04/14/19 07:10 Total Bilirubin 0.8 mg/dL (0.2-1) 04/14/19 07:10 AST 29 U/L (15-37) 04/14/19 07:10 ALT 52 U/L (13-61) 04/14/19 07:10 Alkaline Phosphatase 81 U/L (45-117) 04/14/19 07:10 Total Protein 6.5 g/dl (6.4-8.2) 04/14/19 07:10 Albumin 3.1 g/dl (3.4-5.0) L 04/14/19 07:10 CARDIAC ENZYMES Troponin I < 0.02 ng/ml (0.00-0.05) 04/13/19 12:50 Current Medications Generic Name Dose Route Start Last Admin Trade Name Freq PRN Reason Stop Dose Admin Enoxaparin Sodium 40 mg 04/14/19 10:00 Lovenox - SQ DAILY [facility] Azithromycin 500 mg in 250 mls @ 250 mls/hr 04/14/19 10:00 Zithromax 500mg Ivpb (Pre-Docked) IVPB DAILY [facility] Ceftriaxone Sodium 1 gm/ 50 mls @ 100 mls/hr 04/14/19 10:00 Dextrose IVPB DAILY [facility] Protocol Sodium Chloride 1,000 mls @ 50 mls/hr 04/14/19 01:45 04/14/19 02:39 Normal Saline - IV 50 mls/hr ASDIR NICOLE Administration Ibuprofen 600 mg 04/14/19 01:32 Motrin - PO Q8H PRN PAIN LEVEL 1-5 Methylprednisolone Sodium Succinate 40 mg 04/14/19 10:00 Solu-Medrol - IVPUSH DAILY [facility] Morphine Sulfate 2 mg 04/14/19 01:32 04/14/19 03:01 Morphine Sulfate IVPUSH 2 mg Q4H PRN Administration PAIN LEVEL 6-10 Home Medications Medication Instructions Recorded NK [No Known Home Medication] 04/13/19 Home Medications Medication Instructions Recorded Azithromycin [Zithromax] 250 mg PO DAILY #3 vial 04/15/19 Cefuroxime Axetil [Ceftin -] 500 mg PO Q12H #20 tablet 04/15/19 CXR with questionable infiltrate on right RUQ US negative for acute kelley CTAP reveals only Lt ovarian cyst and abdominal wall hernia) Assessment and Plan: Patient is a 63yof with no past medical history who comes in complaining of a one-day history of right upper quadrant pain. And was found to have Pneumonia. # Right Pulmonary Infiltrate: on iv abx rocphin/zithromax /medrol IV continue , will dc her on oral ceftin with 2 more days of zithromx 250mg po qd. #Small pocket of air within the upper anterior pelvic wall: surgical consult , cannot r/o small pneumoperitoneum. #Left ovarian cyst 3cm without nodularity or thickened internal septation. follow with your own OBGYN as an patient. #Transaminitis of unknown significance: improved DVT Px: Lovenox dc patient.
== END 2019-04-15 15:20 | disposition home or self-care (01) | DRG 139 ==
LOC: JER 12:11 → JERBED 23:48 → J6S 04-14 04:06
PROVIDERS: ADMIT Internal Medicine; ATTEND Internal Medicine
DX: J18.9 Pneumonia, unspecified organism (principal); J98.11 Atelectasis; E87.5 Hyperkalemia; N83.202 Unspecified ovarian cyst, left side; K46.9 Unspecified abdominal hernia without obstruction or gangrene; R74.0 Nonspecific elevation of levels of transaminase and lactic acid dehydrogenase [LDH]; F17.210 Nicotine dependence, cigarettes, uncomplicated; K76.0 Fatty (change of) liver, not elsewhere classified; R10.13 Epigastric pain
CPT/HCPCS: 36415; 71045-TC-FY; 74176-TC; 74177-TC; 76705-TC; 80053; 81003; 82803; 83605; 83690; 83735; 84100; 84484; 85025; 85610; 87040; 87086; 93005; 93010; 99285-25; J0131; J7030; Q9967

== ENCOUNTER 2023-04-19 16:23 | Emergency (ER) | payer OTHER ==
[2023-04-19 16:54] VITALS: BMI 25.8
[2023-04-19] MEDS ORDERED: MAG HYDROX/AL HYDROX/SIMETH 30 ML UNIT-DOSE CUP PO ONE (18:22)
[2023-04-19] MEDS ORDERED: FAMOTIDINE 20 MG/50 ML IVPB 20 MG/50 ML MG IVPB ONE ×2 (18:22→19:13)
[2023-04-19] MEDS ORDERED: ACETAMINOPHEN 1000 MG/100 ML BAG IVPB ONE (18:23)
[2023-04-19 19:02] LABS: EPI CELLS 10 /uL (0-25.1); HYALINE CASTS 1 /uL (0-3.1); URINE APPEARANCE CLEAR; URINE BACTERIA 21 /uL (0-1359); URINE BILIRUBIN NEGATIVE (NEGATIVE); URINE COLOR YELLOW; URINE GLUCOSE (UA) NEGATIVE (NEGATIVE); URINE KETONE NEGATIVE (NEGATIVE); URINE LEUK ESTERASE 2+ (NEGATIVE); URINE NITRITE NEGATIVE (NEGATIVE); URINE PROTEIN NEGATIVE (NEGATIVE); URINE RBC 8 /uL (0-23.9); URINE UROBILINOGEN 4.0 E.U/dl mg/dL (0.2-1.0); URINE WBC 10 /uL (0-25.8)
[2023-04-19 19:07] LABS: BASO % 0.7 % (0-2.0); HEMATOCRIT 43.9 % (32.4-45.2); HEMOGLOBIN 14.8 GM/dL (10.7-15.3); LYMPH % 38.7 % (8-40); MCH 30.7 pg (25.7-33.7); MCHC 33.7 g/dl (32.0-36.0); MEAN CELL VOLUME 91.1 fl (80-96); MEAN PLT VOLUME 7.3 fl (7.5-11.1); MONO % 12.6 % (3.8-10.2); PLATELET COUNT 197 10^3/uL (134-434); RBC 4.82 M/mm3 (3.60-5.2); RDW 13.3 % (11.6-15.6); WHITE BLOOD COUNT 7.2 K/mm3 (4.0-10.0)
[2023-04-19] MEDS ORDERED: MAG HYDROX/AL HYDROX/SIMETH 30 ML UNIT-DOSE CUP ONE (19:13)
[2023-04-19] MEDS ORDERED: ACETAMINOPHEN INJECTION 100 ML IVPB ONE (19:13)
[2023-04-19 19:34] LABS: POTASSIUM 4.1 mmol/L (3.5-5.1)
[2023-04-19 19:36] LABS: ALBUMIN 3.5 g/dl (3.4-5.0); BLOOD UREA NITROGEN 11.8 mg/dL (7-18); CALCIUM 9.3 mg/dL (8.5-10.1)
[2023-04-19 19:37] LABS: MAGNESIUM 1.9 mg/dL (1.8-2.4)
[2023-04-19 19:40] LABS: CREATININE 0.5 mg/dL (0.55-1.3)
[2023-04-19 19:41] LABS: BILIRUBIN,TOTAL 0.9 mg/dL (0.2-1); TOT PROT 7.4 g/dl (6.4-8.2)
[2023-04-19 20:52] VITALS: BP 122/78; PULSE 76; RESP 19; TEMP 97.9
== END 2023-04-19 20:55 | disposition home or self-care (01) ==
LOC: JER 16:23
PROC: 3E033NZ Introduction of Analgesics, Hypnotics, Sedatives into Peripheral Vein, Percutaneous Approach (ICD-10-PCS; principal; 2023-04-19)
DX: R42 Dizziness and giddiness (principal); R55 Syncope and collapse; R07.9 Chest pain, unspecified; R10.13 Epigastric pain; R61 Generalized hyperhidrosis; R20.2 Paresthesia of skin; Z20.822 Contact with and (suspected) exposure to COVID-19
CPT/HCPCS: 0241U-QW; 36415; 71045-TC-FY; 80053; 81003; 83735; 84443; 84484; 85025; 87086; 93005; 93010; 96374; 99285-25

== ENCOUNTER 2023-07-04 16:23 | Inpatient (IN) | payer OTHER ==
[2023-07-04 16:38] VITALS: BMI 25.8
[2023-07-04] MEDS ORDERED: ASPIRIN 81 MG CHEWABLE TABLETS ONE (16:52)
[2023-07-04] MEDS ORDERED: ADENOSINE 6 MG/2 ML VIAL IVPUSH ONE ×2 (16:52→16:58)
[2023-07-04] MEDS: ASPIRIN 81 MG CHEWABLE TABLETS PO ONE (16:53)
[2023-07-04] MEDS: ADENOSINE 6 MG/2 ML VIAL IVPUSH ONE ×2 (16:53→17:00)
[2023-07-04 17:21] LABS: BASO % 0.2 % (0-2.0); EOS % 0.7 % (0-4.5); HEMOGLOBIN 15.4 GM/dL (10.7-15.3); MCH 31.2 pg (25.7-33.7); MCHC 34.3 g/dl (32.0-36.0); MEAN CELL VOLUME 90.9 fl (80-96); MEAN PLT VOLUME 7.7 fl (7.5-11.1); MONO % 10.8 % (3.8-10.2); NEUT % 48.3 % (42.8-82.8); PLATELET COUNT 158 10^3/uL (134-434); RBC 4.95 M/mm3 (3.60-5.2); RDW 13.4 % (11.6-15.6); WHITE BLOOD COUNT 6.9 K/mm3 (4.0-10.0)
[2023-07-04 17:32] LABS: INR 1.14 (0.83-1.09); PROTHROMBIN TIME (PATIENT) 13.2 SEC (9.7-13.0)
[2023-07-04 17:35] LABS: ACTIVATED PTT 34.8 SECONDS (25.2-36.5)
[2023-07-04 19:20] LABS: POTASSIUM 3.8 mmol/L (3.5-5.1)
[2023-07-04 19:24] LABS: CALCIUM 9.1 mg/dL (8.5-10.1)
[2023-07-04 19:25] LABS: ALBUMIN 3.4 g/dl (3.4-5.0); BLOOD UREA NITROGEN 17.1 mg/dL (7-18)
[2023-07-04 19:28] LABS: CREATININE 0.7 mg/dL (0.55-1.3)
[2023-07-04 19:30] LABS: BILIRUBIN,TOTAL 1.1 mg/dL (0.2-1)
[2023-07-04] MEDS ORDERED: ACETAMINOPHEN 325 MG TABLET (FP) ONE (22:15)
[2023-07-04] MEDS: ACETAMINOPHEN 325 MG TABLET (FP) PO ONE (22:22)
[2023-07-05 00:44] LABS: EPI CELLS 11 /uL (0-25.1); HYALINE CASTS 2 /uL (0-3.1); PH,URINE 5.5 (5.0-8.0); URINE APPEARANCE CLEAR; URINE BACTERIA 50 /uL (0-1359); URINE BILIRUBIN 1+ (NEGATIVE); URINE COLOR DK YELLOW; URINE GLUCOSE (UA) NEGATIVE (NEGATIVE); URINE KETONE NEGATIVE (NEGATIVE); URINE LEUK ESTERASE 2+ (NEGATIVE); URINE NITRITE NEGATIVE (NEGATIVE); URINE PROTEIN NEGATIVE (NEGATIVE); URINE UROBILINOGEN 4.0 E.U/dl mg/dL (0.2-1.0); URINE WBC 52 /uL (0-25.8)
[2023-07-05 00:51] LABS: METHADONE, UR NEGATIVE (NEGATIVE); PHENCYCLIDINE,URINE NEGATIVE (NEGATIVE); URINE BARBITURATES NEGATIVE (NEGATIVE); URINE BENZODIAZEPINES NEGATIVE (NEGATIVE)
[2023-07-05 01:00] LABS: COCAINE, UR POSITIVE (NEGATIVE); OPIATES, URI NEGATIVE (NEGATIVE); URINE AMPHETAMINES NEGATIVE (NEGATIVE)
[2023-07-05 01:10] VITALS: TEMP 97.9
[2023-07-05 06:17] LABS: BASO % 0.2 % (0-2.0); HEMATOCRIT 41.4 % (32.4-45.2); HEMOGLOBIN 13.9 GM/dL (10.7-15.3); LYMPH % 37.6 % (8-40); MCH 30.8 pg (25.7-33.7); MCHC 33.7 g/dl (32.0-36.0); MEAN CELL VOLUME 91.6 fl (80-96); MONO % 10.8 % (3.8-10.2); NEUT % 50.4 % (42.8-82.8); PLATELET COUNT 145 10^3/uL (134-434); RBC 4.52 M/mm3 (3.60-5.2); RDW 13.2 % (11.6-15.6); WHITE BLOOD COUNT 5.2 K/mm3 (4.0-10.0)
[2023-07-05 06:33] LABS: POTASSIUM 3.7 mmol/L (3.5-5.1)
[2023-07-05 06:35] LABS: CALCIUM 8.5 mg/dL (8.5-10.1)
[2023-07-05 06:36] LABS: URINE CRYSTALS MANY /hpf; URINE RBC 21.8 /uL (0-23.9)
[2023-07-05 06:36] LABS: MAGNESIUM 1.8 mg/dL (1.8-2.4)
[2023-07-05 06:38] LABS: ALBUMIN 3.2 g/dl (3.4-5.0); BLOOD UREA NITROGEN 14.8 mg/dL (7-18)
[2023-07-05 06:39] LABS: CREATININE 0.6 mg/dL (0.55-1.3)
[2023-07-05 06:41] LABS: PHOSPHOROUS 3.6 mg/dL (2.5-4.9); TOT PROT 6.8 g/dl (6.4-8.2)
[2023-07-05] MEDS ORDERED: ASPIRIN 81 MG CHEWABLE TABLETS ONE ×2 (09:29→09:33)
[2023-07-05] MEDS ORDERED: ENOXAPARIN NA (PORCINE) 40 MG/0.4 ML DISP.SYRIN SQ ONE (09:29)
[2023-07-05] MEDS: ENOXAPARIN NA (PORCINE) 40 MG/0.4 ML DISP.SYRIN SQ SCH (09:40)
[2023-07-05] MEDS: ASPIRIN COATED 81 MG TABLET.EC PO SCH (09:40)
[2023-07-05 18:44] VITALS: BP 121/80; PULSE 76; RESP 16
[2023-07-05] MEDS ORDERED: ROSUVASTATIN CA 10 MG TABLET PO SCH (22:00)
== END 2023-07-05 18:45 | disposition home or self-care (01) | DRG 309 ==
LOC: JER 16:23 → JERBED 17:52
PROVIDERS: ADMIT Internal Medicine; ATTEND Nurse Practitioner Family
DX: I47.10 Supraventricular tachycardia, unspecified (principal); I24.89 Other forms of acute ischemic heart disease; M10.9 Gout, unspecified; R74.01 Elevation of levels of liver transaminase levels; R79.89 Other specified abnormal findings of blood chemistry; K76.0 Fatty (change of) liver, not elsewhere classified
CPT/HCPCS: 36415; 71045-TC-FY; 76705-TC; 80053; 80061; 80307; 81003; 83036; 83735; 84100; 84439; 84443; 84484; 85025; 85610; 85730; 86704; 86706; 86709; 86803; 87340; 87522; 93005; 93010; 93306-TC; 99285-25